=== PATIENT | male | born 1970 | race Two or more races ===

== ENCOUNTER 2021-02-19 10:47 | Day surgery (SDC) | payer OTHER | END 2021-02-19 18:00 | disposition home or self-care (01) | LOC: AMB-ENDOS 10:47 | PROVIDERS: ATTEND Surgery | DX: C7A.025 Malignant carcinoid tumor of the sigmoid colon (principal); K62.7 Radiation proctitis; Z20.822 Contact with and (suspected) exposure to COVID-19 ==

== ENCOUNTER 2021-04-11 10:45 | Inpatient (IN) | payer OTHER ==
[~2021-04-11] VITALS: Ht 157.5 cm; Wt 113.4 kg
[2021-04-11] MEDS ORDERED: HYDROCHLOROTHIA25 MG PO (12:45)
[2021-04-11] MEDS ORDERED: COZAAR50 MG PO (12:45)
[2021-04-11] MEDS ORDERED: ADULT LOW DOSE81 M1 PO (12:45)
[2021-04-11] MEDS ORDERED: OMEPRAZOLE MAGN20 MG PO (12:45)
[2021-04-11] MEDS ORDERED: ZOCOR20 MG PO (12:46)
[2021-04-26] MEDS ORDERED: RECTICARE30 GM TOP (08:18)
[2021-04-26] MEDS ORDERED: ULTRACET PO (08:18)
== END 2021-04-26 09:48 | disposition home or self-care (01) | DRG 376 ==
LOC: SURH 04-18 07:00 → O/R 04-25 05:46 → SURH 04-25 10:45
PROVIDERS: ADMIT Surgery; ATTEND Surgery
PROC: 0DBP8ZX Excision of Rectum, Via Natural or Artificial Opening Endoscopic, Diagnostic (ICD-10-PCS; principal; 2021-04-25 16:15)
DX: C7A.026 Malignant carcinoid tumor of the rectum (principal); Z20.822 Contact with and (suspected) exposure to COVID-19; Z93.3 Colostomy status

== ENCOUNTER → 2021-04-25 06:27 | Outpatient (CLI) | payer OTHER ==
[~2021-04-25 06:27] MED LIST: ADULT LOW DOSE81 M1 PO; COZAAR50 MG PO; HYDROCHLOROTHIA25 MG PO; OMEPRAZOLE MAGN20 MG PO; RECTICARE30 GM TOP; ULTRACET PO; ZOCOR20 MG PO
== END | disposition home or self-care (01) ==
LOC: LAB 06:27
PROVIDERS: ATTEND Surgery
DX: Z03.818 Encounter for observation for suspected exposure to other biological agents ruled out (principal); R14.0 Abdominal distension (gaseous); K57.20 Diverticulitis of large intestine with perforation and abscess without bleeding; K94.00 Colostomy complication, unspecified